=== PATIENT | female | born 1955 | race Caucasian/White ===

== ENCOUNTER 2018-07-14 06:49 | Day surgery (SDC) | payer OTHER ==
--- NOTE | 2018-07-12 11:35 | NUR ---
DR KEVIN HERNANDEZ FAXED WITH LAB RESULTS FOR REVIEW PREOP. CALLED TO OFFICE SPOKE WITH KAREN. SHE REPORTS THE LAB CORA RESULTS ON HIS DESK TO REVIEW. ALSO SPOKE WITH DR ADLER ANESTHESIOLOGIST AND REVIEWED LAB RESULTS. PER DR ADLER, OK FOR SURGERY.
[~2018-07-14] VITALS: Ht 154.9 cm; Wt 52.2 kg
[2018-07-14 07:14] VITALS: BP 109/64
[2018-07-14 17:23] VITALS: BP 118/64
== END 2018-07-14 17:45 | disposition home or self-care (01) ==
LOC: DS 06:49 → NM 07:00 → DS 08:00 → MA 08:00 → OR 11:30 → DS 17:45
PROVIDERS: Surgery
PROC: 0HBT0ZZ Excision of Right Breast, Open Approach (ICD-10-PCS; principal; 2018-07-14 11:30)
DX: C50.411 Malignant neoplasm of upper-outer quadrant of right female breast (principal); D64.9 Anemia, unspecified; Z92.21 Personal history of antineoplastic chemotherapy
CPT/HCPCS: 88329; 88344; J0690; J1170; J2001; J2405; J2704; J3010; J3490; J7120; Q9968